=== PATIENT | male | born 1995 | race Two or more races ===

== ENCOUNTER 2022-03-31 19:22 | Emergency (ER) | payer OTHER ==
[2022-03-31 19:53] VITALS: BP 124/71; PULSE 74; TEMP 97.9; BMI 28.1
[2022-03-31] MEDS ORDERED: BACITRACIN 15 GM TUBE TOPICAL OINTMENT TP ONE (22:30)
[2022-03-31] MEDS ORDERED: BACITRACIN 15 GM TUBE TOPICAL OINTMENT ONE (22:30)
== END 2022-04-01 00:11 | disposition home or self-care (01) ==
LOC: JER 19:22 → JERFT 19:22
DX: S00.91XA Abrasion of unspecified part of head, initial encounter (principal); V00.841A Fall from standing electric scooter, initial encounter
CPT/HCPCS: 70450-TC; 99284-25